=== PATIENT | male | born 1940 | race Caucasian/White ===

== ENCOUNTER 2016-11-08 21:20 | Observation (INO) | payer MEDICARE ==
[~2016-11-08] VITALS: Ht 177.8 cm; Wt 101.0 kg
[2016-11-08] VITALS (7 sets, daily range): BP systolic 79–140; BP diastolic 45–70; PULSE 58–88; RESP 18–20; TEMP 99–101.1; O2SAT 95–97
[~2016-11-08 21:20] MED LIST: ANDR1GEL; ASPI81TA82 PO; CETI10 PO; FELO5TAB PO; JALYCAP; LISI20 PO; LORTA5; PROPIONATE; PROT40TA PO; SIMV80TA PO; VITA-13; [UNRECOGNIZED DRUG - CODE]; [UNRECOGNIZED DRUG - OTHER]
[2016-11-08] MEDS ORDERED: SODIUM CHLOR 0.9% 1000 ML INJ 1,000 ML IV ONE (21:32)
[2016-11-08] MEDS ORDERED: ONDANSETRON HCL 4 MG/2 ML VIAL IVP ONE (21:45)
[2016-11-08 21:53] LABS: BASOPHIL % 0.5 % (0.0-2.0); EOSINOPHIL % 0.8 % (0.0-4.0); HEMATOCRIT 38.5 % (39.0-51.0); LYMPH % 14.7 % (9.0-44.0); LYMPHOCYTE # 0.6 TH/MM3 (1.0-4.8); MEAN CELL VOLUME 87.3 FL (80.0-100.0); MEAN CORPUSCULAR HEMOGLOBIN 29.1 PG (27.0-34.0); MEAN CORPUSCULAR HGB CONC 33.3 % (32.0-36.0); MONO % 6.9 % (0.0-8.0); NEUT % 77.1 % (16.0-70.0); PLATELET COUNT 123 TH/MM3 (150-450); RED BLOOD COUNT 4.42 MIL/MM3 (4.50-5.90); RED CELL DISTRIBUTION WIDTH 13.1 % (11.6-17.2); WHITE BLOOD COUNT 3.9 TH/MM3 (4.0-11.0)
[2016-11-08 21:55] LABS: HEMO FLAGS DIFF FINAL
[2016-11-08] MEDS: SODIUM CHLORIDE 0.9% FLUSH 5 ML FLUSH IVF PRN ×2 (22:00→23:04)
[2016-11-08 22:04] LABS: CHLORIDE 108 MEQ/L (98-107); SODIUM (NA) 141 MEQ/L (136-145)
[2016-11-08 22:07] LABS: ANION GAP 9 MEQ/L (5-15); BICARBONATE 23.7 MEQ/L (21.0-32.0); BLOOD UREA NITROGEN 19 MG/DL (7-18); MAGNESIUM 1.5 MG/DL (1.5-2.5)
--- NOTE | 2016-11-08 22:09 | RADHPO ---
EXAM DATE/TIME: 11/08/2016 21:44 [facility] COMPARISON: No previous studies available for comparison. INDICATIONS : Syncopal episode with fall. Frontal head trauma. RADIATION DOSE: 59.39 CTDIvol (mGy) MEDICAL HISTORY : Hypertension. SURGICAL HISTORY : None. ENCOUNTER: Initial ACUITY: 1 day PAIN SCALE: 5/10 LOCATION: frontal TECHNIQUE: Multiple contiguous axial images were obtained of the head. Using automated exposure control and adj ustment of the mA and/or kV according to patient size, radiation dose was kept as low as reasonably a chievable to obtain optimal diagnostic quality images. FINDINGS: CEREBRUM: The ventricles are normal for age. No evidence of midline shift, mass lesion, hemorrhage or acute in farction. No extra-axial fluid collections are seen. POSTERIOR FOSSA: The cerebellum and brainstem are intact. The 4th ventricle is midline. The cerebellopontine angle i s unremarkable. EXTRACRANIAL: The visualized portion of the orbits is intact. SKULL: The calvaria is intact. No evidence of skull fracture. CONCLUSION: Negative noncontrast head CT. Austyn Piña MD on November 08, 2016 at 22:07 Board Certified Radiologist. This report was verified electronically.
[2016-11-08 22:10] LABS: GLOMERULAR FILTRATION RATE 65 ML/MIN (>89)
[2016-11-08 22:12] LABS: POTASSIUM 4.6 MEQ/L (3.5-5.1)
[2016-11-08 22:20] LABS: CREATINE KINASE 72 U/L (39-308)
[2016-11-08] MEDS ORDERED: ATOR40TA16 PO (22:34)
[2016-11-08] MEDS ORDERED: VITA100021 SL (22:35)
[2016-11-08] MEDS ORDERED: ASPI81TA81 PO (22:35)
[2016-11-08] MEDS ORDERED: TAMS0.4C4 PO (22:35)
[2016-11-08] MEDS ORDERED: AMLO5TAB2 PO (22:35)
[2016-11-08] MEDS ORDERED: FISH1000 PO (22:35)
[2016-11-08] MEDS ORDERED: PANT40TA3 PO (22:35)
[2016-11-08] MEDS ORDERED: VITA20003 PO (22:35)
[2016-11-08] MEDS ORDERED: PROS5TAB PO (22:35)
[2016-11-08] MEDS ORDERED: LISI40TA PO (22:35)
[2016-11-08] MEDS ORDERED: METOCLOPRAMIDE INJ 10 MG in SODIUM CHLORIDE 0.9% INJ 50 ML IV ONE (22:45)
--- NOTE | 2016-11-08 22:49 | PD ---
HPI Chief Complaint: Syncope/Near-Syncope Time Seen by Provider: 21:41 Travel History International Travel<30 days: No Contact w/Intl Traveler<30days: No Traveled to known affect area: No History of Present Illness HPI 75yo M presents to the ED with c/o episode of syncope today. Pt has been feeling lightheaded and dizzy when standing up from sitting position for a few days. Today he has been having nonbloody diarrhea and was leaning on kitchen table when his heard him fall to the fall. Pt was out for 5 -10 sec as per . +Nausea. Pt denies any headache, visual changes, vomiting, abdominal pain, focal weakness or numbness. Pt was positive orthostatic as per [facility]. He was pale but not diaphoretic. PFSH Past Medical History Heart Rhythm Problems: No Cancer: No Cardiovascular Problems: Yes High Cholesterol: Yes Chest Pain: Yes Congestive Heart Failure: No Diminished Hearing: Yes Endocrine: No GERD: Yes Genitourinary: No Hiatal Hernia: No Hypertension: Yes Immune Disorder: No Musculoskeletal: No Neurologic: No Psychiatric: No Reproductive: No Respiratory: No Ulcer: No Past Surgical History Abdominal Surgery: No Cardiac Surgery: No Ear Surgery: No Endocrine Surgery: No Eye Surgery: No Genitourinary Surgery: No Gynecologic Surgery: No Oral Surgery: Yes (ALL TEETH REMOVED) Pacemaker: No Thoracic Surgery: No Social History Alcohol Use: Yes (OCC) Tobacco Use: No Substance Use: No Allergies-Medications (Allergen,Severity, Reaction): Coded Allergies: No Known Allergies (Unverified , 03/21/12) Reported Meds & Prescriptions Reported Meds & Active Scripts Active Reported Vitamin D (Cholecalciferol) 2,000 Unit Tab 2,000 Mg PO DAILY Vitamin B-12 (Cyanocobalamin) 1,000 Mcg Subl 1,000 Mcg SL DAILY Fish Oil (Katy-3 Fatty Acids) 1,000 Mg Cap 1,000 Mg PO DAILY Aspir-81 (Aspirin) 81 Mg Tabdr 81 Mg PO DAILY Pantoprazole (Pantoprazole Sodium) 40 Mg Tab 40 Mg PO DAILY Amlodipine (Amlodipine Besylate) 5 Mg Tab 5 Mg PO DAILY Lisinopril 40 Mg Tab 40 Mg PO DAILY Proscar (Finasteride) 5 Mg Tab 5 Mg PO DAILY Do not crush. Tamsulosin (Tamsulosin HCl) 0.4 Mg Cap 0.4 Mg PO HS Atorvastatin (Atorvastatin Calcium) 40 Mg Tab 40 Mg PO HS Review of Systems Except as stated in HPI: all other systems reviewed are Neg Physical Exam Narrative GENERAL: 75yo M not in distress. SKIN: Warm and dry. HEAD: Atraumatic. Normocephalic. EYES: Pupils equal and round. EOMI. No scleral icterus. No injection or drainage. ENT: No nasal bleeding or discharge. Mucous membranes pink and moist. NECK: Trachea midline. No JVD. CARDIOVASCULAR: Regular rate and rhythm. No murmur appreciated. RESPIRATORY: No accessory muscle use. Clear to auscultation. Breath sounds equal bilaterally. GASTROINTESTINAL: Abdomen soft, non-tender, nondistended. MUSCULOSKELETAL: No obvious deformities. No clubbing. No cyanosis. No edema. NEUROLOGICAL: Awake and alert. No obvious cranial nerve deficits. Motor grossly within normal limits. Normal speech. PSYCHIATRIC: Appropriate mood and affect; insight and judgment normal. Data Data Last Documented VS Vital Signs Date Time Temp Pulse Resp B/P Pulse Ox O2 Delivery O2 Flow Rate FiO2 11/08/16 23:30 101.1 84 20 103/56 97 11/08/16 21:42 Room Air Orders Electrocardiogram (11/08/16 21:32) Basic Metabolic Panel (Bmp) (11/08/16 21:32) Complete Blood Count With Diff (11/08/16 21:32) Magnesium (Mg) (11/08/16 21:32) Ckmb (Isoenzyme) Profile (11/08/16 21:32) Troponin I (11/08/16 21:32) Act Partial Throm Time (Ptt) (11/08/16 21:32) Prothrombin Time / Inr (Pt) (11/08/16 21:32) Urinalysis - C+S If Indicated (11/08/16 21:32) Ct Brain W/O Iv Contrast(Rout) (11/08/16 21:32) Ecg Monitoring (11/08/16 21:32) Iv Access Insert/Monitor (11/08/16 21:32) Oximetry (11/08/16 21:32) Ondansetron Inj (Zofran Inj) (11/08/16 21:45) Sodium Chloride 0.9% Flush (Ns Flush) (11/08/16 21:45) Sodium Chlor 0.9% 1000 Ml Inj (Ns 1000 M (11/08/16 21:32) Orthostatic Vital Signs (11/08/16 21:34) Metoclopramide Inj (Reglan Inj) (11/08/16 22:45) Acetaminophen (Tylenol) (11/08/16 23:15) Influenzae A/B Antigen (11/08/16 23:20) Sodium Chlor 0.9% 1000 Ml Inj (Ns 1000 M (11/09/16 00:00) Chest, Single Ap (11/08/16 ) Sodium Chlor 0.9% 1000 Ml Inj (Ns 1000 M (11/09/16 00:00) Admit Order (Ed Use Only) (11/08/16 23:55) Labs Laboratory Tests Test 11/08/16 11/08/16 21:45 23:30 White Blood Count 3.9 TH/MM3 Red Blood Count 4.42 MIL/MM3 Hemoglobin 12.8 GM/DL Hematocrit 38.5 % Mean Corpuscular Volume 87.3 FL Mean Corpuscular Hemoglobin 29.1 PG Mean Corpuscular Hemoglobin 33.3 % Concent Red Cell Distribution Width 13.1 % Platelet Count 123 TH/MM3 Mean Platelet Volume 8.4 FL Neutrophils (%) (Auto) 77.1 % Lymphocytes (%) (Auto) 14.7 % Monocytes (%) (Auto) 6.9 % Eosinophils (%) (Auto) 0.8 % Basophils (%) (Auto) 0.5 % Neutrophils # (Auto) 3.0 TH/MM3 Lymphocytes # (Auto) 0.6 TH/MM3 Monocytes # (Auto) 0.3 TH/MM3 Eosinophils # (Auto) 0.0 TH/MM3 Basophils # (Auto) 0.0 TH/MM3 CBC Comment DIFF FINAL Differential Comment Prothrombin Time 11.0 SEC Prothromb Time International 1.0 RATIO Ratio Activated Partial 23.7 SEC Thromboplast Time Sodium Level 141 MEQ/L Potassium Level 4.6 MEQ/L Chloride Level 108 MEQ/L Carbon Dioxide Level 23.7 MEQ/L Anion Gap 9 MEQ/L Blood Urea Nitrogen 19 MG/DL Creatinine 1.10 MG/DL Estimat Glomerular Filtration 65 ML/MIN Rate Random Glucose 109 MG/DL Calcium Level 8.1 MG/DL Magnesium Level 1.5 MG/DL Total Creatine Kinase 72 U/L Troponin I LESS THAN 0.02 NG/ML Urine Collection Type VOIDED Urine Color YELLOW Urine Turbidity CLEAR Urine pH 6.0 Urine Specific [place] 1.020 Urine Protein NEG mg/dL Urine Glucose (UA) NEG mg/dL Urine Ketones NEG mg/dL Urine Occult Blood NEG Urine Nitrite NEG Urine Bilirubin NEG Urine Leukocyte Esterase NEG Urine WBC 0-2 /hpf Urine Squamous Epithelial 0-2 /hpf Cells Urine Mucus RARE /lpf Microscopic Urinalysis Comment CULT NOT INDICATED MDM Medical Decision Making Medical Screen Exam Complete: Yes Emergency Medical Condition: Yes Interpretation(s) EKG: NSR 75bpm. LAD. LAFB. No ST segment elevation or depression. Differential Diagnosis Vasovagal syncope vs. dehydration vs. electrolyte abnormality vs. arrhythmia Narrative Course 75yo M with episode of syncope, impression is vasovagal. Pt's blood pressure lying down is 140/70 but when he stands up, drops to 79/45 here. Pt denies any black stool. Labs reviewed, WBC 3.9. H/H 12.8/38.5. Thrombocytopenia at 123. Troponin negative. CT brain negative. Pt given NS IVF with improvement of symptoms. While pt was here, pt developed fever of 101F. Pt given acetaminophen. Pt states he does have some cough for a few days. Influenza, CXR, UA and cdiff stool culture ordered. UA negative. CXR showed no infiltrate. Influenza negative. C diff pending. Pt empirically given vancomycin and zosyn. Pt states he has history of arrhythmia but does not know his nursing administrator's name and his nursing administrator states that he does not have to follow up with him for [address] Kaminski and pt accepted for syncope. Diagnosis Primary Impression: Syncope Qualified Code: R55 - Syncope, unspecified syncope type Admitting Information Admitting Physician Requests: Sherice Vasquez DO Nov 08, 2016 22:49
[2016-11-08 22:50] LABS: APTT (PATIENT) 23.7 SEC (24.3-30.1)
[2016-11-08] MEDS ORDERED: ACETAMINOPHEN 325 MG TAB PO ONE (23:15)
[2016-11-09] VITALS (14 sets, daily range): BP systolic 106–138; BP diastolic 53–80; PULSE 57–82; RESP 20–21; TEMP 98–100.1; O2SAT 93–98
[2016-11-09] MEDS ORDERED: SODIUM CHLOR 0.9% 1000 ML INJ 1,000 ML IV ONE ×2
[2016-11-09 00:08] LABS: BLOOD, URINE NEG (NEG); GLUCOSE,URINE NEG (NEG); KETONE, URINE NEG (NEG); NITRITE,URINE NEG (NEG)
[2016-11-09 00:14] LABS: METHOD OF COLLECTION VOIDED; MUCUS URINE RARE /lpf (OCC); URINE COLOR YELLOW (YELLW/STRAW)
[2016-11-09 00:15] LABS: COMMENT (UR) CULT NOT INDICATED; CULTURE IF INDICATED CULT NOT INDICATED; SQUAMOUS EPITHELIAL CELL URINE 0-2 /hpf (0-5); WBC, URINE 0-2 /hpf (0-5)
[2016-11-09] MEDS ORDERED: VANCOMYCIN INJ 1,000 MG in SODIUM CHLOR 0.9% 250 ML INJ 250 ML IV ONE (00:15)
[2016-11-09] MEDS ORDERED: PIPERACIL-TAZO 3.375 GM PREMIX 50 ML IV ONE (00:15)
--- NOTE | 2016-11-09 00:19 | RADHPO ---
EXAM DATE/TIME: 11/08/2016 23:58 [facility] COMPARISON: No previous studies available for comparison. INDICATIONS : Short of breath with a cough. MEDICAL HISTORY : Syncope. SURGICAL HISTORY : None. ENCOUNTER: Initial ACUITY: 1 day PAIN SCORE: 3/10 LOCATION: Right chest lower region. FINDINGS: A single view of the chest demonstrates the lungs to be symmetrically aerated without evidence of mas s, infiltrate or effusion. The cardiomediastinal contours are unremarkable. The heart is upper limi ts normal size for an AP film. Osseous structures are intact. CONCLUSION: No infiltrate seen. Umer Rodriguez MD on November 09, 2016 at 0:16 Board Certified Radiologist. This report was verified electronically.
[2016-11-09] MEDS: SODIUM CHLOR 0.9% 1000 ML INJ 1,000 ML IV SCH ×2 (04:32→15:58)
[2016-11-09] MEDS: cefTRIAXone INJ 1,000 MG in SODIUM CHLORIDE 0.9% INJ 100 ML IV SCH (04:32)
[2016-11-09] MEDS ORDERED: NON-FORMULARY DRUG (Omega-3 Fatty Acids (Fish Oil) 1,000 MG) PO SCH (09:00)
[2016-11-09] MEDS: PANTOPRAZOLE SOD 40 MG DELAYED RELEASE TAB PO SCH (09:01)
[2016-11-09] MEDS: ASPIRIN EC 81 MG TABEC PO SCH (09:01)
[2016-11-09] MEDS: FINASTERIDE 5 MG TAB PO SCH (09:01)
--- NOTE | 2016-11-09 11:18 | RADHPO ---
EXAM DATE/TIME: 11/09/2016 09:33 [facility] COMPARISON: No previous studies available for comparison. INDICATIONS : Syncope. MEDICAL HISTORY : Hypercholesterolemia. Gastroesophageal reflux disease. Hypertension. BPH. SURGICAL HISTORY : All teeth removed. ENCOUNTER: Initial ACUITY: 1 day PAIN SCORE: 09/09 LOCATION: Bilateral neck PEAK SYSTOLIC VELOCITIES (cm/sec): ICA/CCA RATIO: Right: 0.6 Left: 0.8 ICA: Right: 50 Left: 61 CCA: Right: 81 Left: 81 ECA: Right: 116 Left: 73 VERTEBRAL: Right: 44 antegrade Left: 60 antegrade Elevated flow velocities and ICA/CCA ratios have been found to correlate with increased degrees of vessel stenosis, calculated as percentage of diameter relative to a normal segment of distal ICA/CCA FINDINGS: RIGHT CAROTID: There is minimal plaque at the right carotid bulb region. No significant stenosis is visualized. The waveforms are within normal limits. LEFT CAROTID: No significant stenosis is visualized. The waveforms are within normal limits. VERTEBRAL ARTERIES: Antegrade flow is seen in both vertebral arteries. MISCELLANEOUS: None. CONCLUSION: Minimal plaque at the right carotid bulb region. A significant stenosis is not seen. Austyn Art MD on November 09, 2016 at 11:15 Board Certified Radiologist. This report was verified electronically.
--- NOTE | 2016-11-09 15:39 | EC ---
Study Study Date:11/09/2016 STUDY CONCLUSIONS SUMMARY - Left ventricle: The cavity size was normal. Wall thickness was normal. Systolic function was normal. The estimated ejection fraction was in the range of 55% to 60%. Wall motion was normal; there were no regional wall motion abnormalities. Doppler parameters are consistent with abnormal left ventricular relaxation (grade 1 diastolic dysfunction). - Aortic valve: Mild regurgitation. - Atrial septum: There was increased thickness of the septum, consistent with lipomatous hypertrophy. - Pulmonary arteries: PA peak pressure: 34mm Hg (S). If LV function is below 40, please consider prescribing an ACEI or ARB or document rationale for non-use. PROCEDURE DATA STUDY STATUS: Elective. Procedure: Transthoracic echocardiography. Image quality was good. Scanning was performed from the parasternal, apical, and subcostal acoustic windows. Study completion: The patient tolerated the procedure well. Transthoracic echocardiography. M-mode, complete 2D, complete spectral Doppler, and color Doppler. Patient status: Inpatient. CARDIAC ANATOMY LEFT VENTRICLE: The cavity size was normal. Wall thickness was normal. Systolic function was normal. The estimated ejection fraction was in the range of 55% to 60%. Wall motion was normal; there were no regional wall motion abnormalities. Doppler parameters are consistent with abnormal left ventricular relaxation (grade 1 diastolic dysfunction). AORTIC VALVE: Trileaflet; normal thickness leaflets. Doppler: Transvalvular velocity was within the normal range. There was no stenosis. Mild regurgitation. Peak gradient: 17mm Hg (S). AORTA: Aortic root: The aortic root was normal in size. MITRAL VALVE: Structurally normal valve. Doppler: Transvalvular velocity was within the normal range. There was no evidence for stenosis. No regurgitation. Peak gradient: 2mm Hg (D). LEFT ATRIUM: The atrium was normal in size. ATRIAL SEPTUM: There was increased thickness of the septum, consistent with lipomatous hypertrophy. RIGHT VENTRICLE: The cavity size was normal. Wall thickness was normal. PULMONIC VALVE: Doppler: Transvalvular velocity was within the normal range. There was no evidence for stenosis. No regurgitation. TRICUSPID VALVE: Structurally normal valve. Doppler: Transvalvular velocity was within the normal range. No regurgitation. PULMONARY ARTERY: The main pulmonary artery was normal-sized. Systolic pressure was within the normal range. RIGHT ATRIUM: The atrium was normal in size. PERICARDIUM: There was no pericardial effusion. SYSTEMIC VEINS: Inferior vena cava: The vessel was normal in size. BASIC MEASUREMENTS ADULT Normal Left ventricle LV internal dimension, ED, chordal level, 49.8 mm 43-52 PLAX LV internal dimension, ES, chordal level, *38.3 mm 23-38 PLAX Fractional shortening, chordal level, PLAX *23 % >29 LV posterior wall thickness, ED 7.32 mm IVS/LVPW ratio, ED *1.72 <1.3 Ventricular septum Septal thickness, ED 12.6 mm Aortic valve Leaflet separation 23 mm 15-26 Left atrium Anterior-posterior dimension 34 mm Right ventricle RV internal dimension, ED, PLAX 22.7 mm 19-38 BASIC MEASUREMENTS ADULT Normal Aortic valve Leaflet separation 23 mm 15-26 Aorta Root diameter, ED *39 mm 20-37 DOPPLER MEASUREMENTS ADULT Normal Main pulmonary artery Pressure, S *34 mm Hg =30 Aortic valve Peak velocity, S 209 cm/s Peak gradient, S 17 mm Hg Mitral valve Peak E-wave velocity 76.5 cm/s Peak A-wave velocity 93.2 cm/s Peak gradient, D 2 mm Hg Peak E/A ratio 0.8 Tricuspid valve Regurgitant peak velocity 270 cm/s Peak RV-RA gradient, S 29 mm Hg Maximal regurgitant velocity 270 cm/s Systemic veins Estimated CVP 5 mm Hg Right ventricle RV pressure, S *34 mm Hg <30 LEGEND: Mean values are shown as u=mean value. Asterisk (*) wheeler values outside specified normal range. Prepared and signed by Wilberto Mohr [id number]
[2016-11-09] MEDS: TAMSULOSIN HCL 0.4 MG CAP PO SCH (21:16)
[2016-11-09] MEDS: ATORVASTATIN 40 MG TAB PO SCH (21:16)
[2016-11-10] VITALS (8 sets, daily range): BP systolic 100–126; BP diastolic 56–89; PULSE 59–88; RESP 18–20; TEMP 97.8–98.2; O2SAT 94–98
[2016-11-10] MEDS: SODIUM CHLOR 0.9% 1000 ML INJ 1,000 ML IV SCH ×3 (03:01→19:45)
[2016-11-10] MEDS: cefTRIAXone INJ 1,000 MG in SODIUM CHLORIDE 0.9% INJ 100 ML IV SCH (03:02)
[2016-11-10 05:11] LABS: HEMATOCRIT 35.4 % (39.0-51.0); MEAN CELL VOLUME 86.3 FL (80.0-100.0); MEAN CORPUSCULAR HEMOGLOBIN 29.8 PG (27.0-34.0); MEAN CORPUSCULAR HGB CONC 34.5 % (32.0-36.0); PLATELET COUNT 127 TH/MM3 (150-450); RED BLOOD COUNT 4.11 MIL/MM3 (4.50-5.90); RED CELL DISTRIBUTION WIDTH 14.4 % (11.6-17.2); REVIEW FLAG FINAL; WHITE BLOOD COUNT 4.4 TH/MM3 (4.0-11.0)
--- NOTE | 2016-11-10 07:31 | EKG ---
Date Performed: 11/08/2016 Time Performed: 21:39:46 PTAGE: 75 years EKG: Sinus rhythm . Possible left anterior fascicular block IV conduction defect Abnormal ECG Compared to PREVIOUS TRACING , axis is more leftward, otherwise no change. PREVIOUS TRACIN2011 19.31 DOCTOR: Jamal Mcgregor Interpretating Date/Time 11/10/2016 07:30:51
[2016-11-10] MEDS: FINASTERIDE 5 MG TAB PO SCH (08:23)
[2016-11-10] MEDS: PANTOPRAZOLE SOD 40 MG DELAYED RELEASE TAB PO SCH (08:23)
[2016-11-10] MEDS: ASPIRIN EC 81 MG TABEC PO SCH (08:23)
[2016-11-10] MEDS: SODIUM CHLORIDE 0.9% FLUSH 5 ML FLUSH IVF PRN (08:23)
--- NOTE | 2016-11-10 10:12 | MH ---
cc: MARCELA KAMINSKI MD DATE OF ADMISSION: 11/08/2016 DATE OF : 1940 CHIEF COMPLAINT Syncope. HISTORY OF PRESENT ILLNESS This is a pleasant 75-year-old white male who has been in his usual routine up until Thursday. He states that he began feeling some generalized weakness with some body aches but continued to do his normal routine. He denies any chest pain, shortness of breath, headache. The patient did have nonbloody diarrhea the day of admission to [facility], but no complaints now of any further diarrhea. The next day on Thursday the patient was working round house and continued to have a body ache sensation the patient does note a history of dizziness but denies any syncopal episodes. The patient did start to note some dizziness with standing at his kitchen counter and does not remember anything after that. His was in the next room and states that the patient was out for 5-10 seconds but then regained consciousness. He was nauseated at that point in time. The patient was brought to the [facility] facility and evaluated. He was transferred here to [place] for continued evaluation. According to the [facility] notes the patient was orthostatic. He was pale but not diaphoretic. Currently the patient's skin is pink, warm and dry. The patient did complain of some cough for a few days but none now. PAST MEDICAL HISTORY According to the patient and the record: 1. Hyperlipidemia. 2. History of chest pain. 3. Hard of hearing. 4. GERD. 5. Hypertension. 6. Dizziness. PAST SURGICAL HISTORY Oral surgery. ALLERGIES No known allergies. MEDICATIONS Medications reported: 1. Vitamin-D. 2. Vitamin-B12. 3. Fish oil. 4. Aspirin. 5. Pantoprazole. 6. Amlodipine. 7. Lisinopril. 8. Proscar. 9. Tamsulosin. 10.Atorvastatin. SOCIAL HISTORY The patient is . Currently lives at home with his . Rare social alcohol. No tobacco. No illicit drugs. REVIEW OF SYSTEMS A 12-point review was obtained. Positives noted were syncope, nausea which resolved, body aches, fever 24 hours before admission, and diarrhea. Other systems are negative or unremarkable. The patient did have nonbloody diarrhea the day of admission to [facility], but no complaints now of any further diarrhea. PHYSICAL EXAMINATION VITAL SIGNS: Temperature 98.1, pulse 64, respirations 20, blood pressure 126/63, has been as low as 116/56. O2 sat 94 on room air. GENERAL: A well-nourished, mildly obese white male who looks to be his stated age, resting on a stretcher. SKIN: [place], warm and dry. HEENT: Atraumatic, normocephalic. PERRLA at 2 mm. Mucous membranes are moist. Tongue is midline. NECK: Supple, thick. CARDIOVASCULAR: S1, S2. No murmurs, rubs or gallops audible. Distant heart sounds. No edema. Pulses are intact. PULMONARY: Essentially clear anteriorly and posteriorly with no wheezes, rales or rhonchi. ABDOMEN: Round, soft, nontender, nondistended. Active bowel sounds in all four quadrants. EXTREMITIES: He moves his extremities with purpose. He can overcome resistance. NEUROLOGIC: He is alert, oriented, a fairly historian. PSYCHIATRIC: Appropriate mood and affect. : Active voiding. Amelia clear urine in the urinal. IMAGING DATA Carotid ultrasound is ordered and pending. Head CT was negative. Chest x-ray: No infiltrates seen. ASSESSMENT 1. Syncope with loss of consciousness 5-10 seconds, rule out TIA. 2. Fever of unknown origin. 3. Generalized weakness with body aches. 4. Acute kidney injury with dehydration, mild. 5. Anemia. 6. History of dizziness. 7. Lactic acid sepsis, unknown origin. 8. Possible gastroenteritis. PLAN 1. Plan is to monitor his vital signs q.4h. and as warranted. 2. Will reconcile medications as needed. 3. Monitor the patient on ECG with active access. 4. O2 p.r.n. 5. Check orthostatic vital signs. These were initially noted to be positive in the notes. Will recheck those today. 6. The patient received Zosyn and vancomycin in the ER. He is currently on Rocephin IV. 7. PUD with Protonix. 8. DVT prophylaxis with aspirin. 9. Will continue his Lipitor for hyperlipidemia. 10.The patient will have carotid artery ultrasound and 2-D echo. Rule out any initial cardiac problems to be addressed. According to the record the patient has seen cardiology in the past, does not remember the name, but has not seen him in three years. 11.He will be placed on a heart-healthy diet. 12.Will check C. difficile toxin if the patient has any more diarrhea. 13.PRN medications for pain, nausea and bowel regimen. This case will be discussed with Dr. Kaminski and we will follow. Dictated by: BERONICA Fry MD KOLBY Chun/ABIEL /7:44 AM /9:12 AM pt is seen & examined d/w PT d/w Christine see Notes per christine see Orders will f/u Marcela Kaminski MD Nov 10, 2016 15:40 MTDD
--- NOTE | 2016-11-10 10:36 | MH ---
DATE OF ADMISSION: 11/08/2016 ADMITTING PHYSICIAN JONATHON VEE MD ATTENDING PHYSICIAN: Dr. Vicki Kaminski CHIEF COMPLAINT: Syncope/near syncope. HISTORY OF PRESENT ILLNESS: The patient is a very pleasant 75 year-old white male who presented to the emergency room with complaints of episodes of syncope today. Per patient he has been feeling lightheaded and dizzy when standing up from sitting position for a few days. Today he has been having dizziness and was leaning on the kitchen table when his heard him fall onto the ground. Per he was out for about 5 to 10 seconds. The patient does complain of nausea, denies any headache, visual changes, vomiting, abdominal pain, chest pain, shortness of breath, palpitations, focal weakness or numbness. The patient with positive orthostatic per [facility]. He was pale but not diaphoretic. While the patient was in the ER he developed a fever of 101 degrees. The patient was given tylenol, vancomycin and zosyn. Per patient he has been having some cough for a few days. PAST MEDICAL HISTORY: 1. Hypertension. 2. Hyperlipidemia. 3. BPH. 4. Gastroesophageal reflux disease. PAST SURGICAL HISTORY: Teeth removed. Appendectomy. SOCIAL HISTORY: . Never a smoker. He drinks one alcoholic beverage per month. No illicit drug use. FAMILY HISTORY: Significant for colon cancer in mother and father. Father also had coronary artery disease, was a smoker. CURRENT MEDICATIONS: 1. Vitamin D. 2. Vitamin B12. 3. Fish oil. 4. Aspirin. 5. Pantoprazole. 6. Amlodipine 7. Lisinopril 8. Proscar 9. Tamsulosin. 10. Atorvastatin REVIEW OF SYSTEMS: GENERAL: He does complain of generalized weakness. HEENT: Denies any headache, ears or eye pain. Denies any nasal discharge. Denies any throat pain. CARDIOVASCULAR: Denies any chest pain or palpitations. RESPIRATORY: Denies any cough or shortness of breath. GASTROINTESTINAL: Denies any abdominal pain, does complain of nausea, no vomiting, loose stools positive. MUSCULOSKELETAL: No arthralgia. NEUROLOGICAL: No focal deficits, seizures or history of CVA. PSYCHIATRIC: No depression or anxiety. PHYSICAL EXAMINATION: GENERAL: The patient is a 75 year-old white male who is lying in bed in no acute distress. SKIN: Warm and dry. HEAD: Atraumatic, normocephalic. EYES: Pupils are equal, round and reactive to light. Extraocular movements are intact. No scleral icterus. No injection or drainage. ENT: No nasal bleeding or discharge. Mucous membranes are pink and moist. NECK: Trachea midline. No JVD. Carotid bruit on the right side. CARDIOVASCULAR: Regular rate and rhythm. No murmur, S1-S2 heard. RESPIRATORY: No accessory muscle use. Clear to auscultation. Breath sounds equal bilaterally. GASTROINTESTINAL: The abdomen is soft, nontender and nondistended. Bowel sounds heard in all four quadrants. MUSCULOSKELETAL: No obvious deformities. No clubbing. No cyanosis. No edema. NEUROLOGICAL: Alert and awake. No focal deficits. Motor grossly within normal limits. Normal speech. PSYCHIATRIC: Appropriate mood and affect, insight and judgment normal. VITAL SIGNS: Blood pressure is 103/56, temperature is 101.1, pulse 84, respiratory rate 20. Pulse oximetry is 98% on room air. LABORATORY DATA: WBC 3.9, hemoglobin 12.8, hematocrit 38.5, platelet count 123,000. Sodium 141, potassium 4.6, chloride 108, BUN 19, creatinine 1.10, random glucose is 109, UA is clear. Chest x-ray, no infiltrates. CT brain without contrast negative. Troponin, first set negative. DIAGNOSTIC IMPRESSION: 1. Syncope. 2. Orthostatic hypotension 3. Hypertension. 4. Hyperlipidemia. 5. Gastroesophageal reflux disease. 6. BPH. PLAN: 1. Will admit the patient under observation. 2. Will start the patient on IV fluids. 3. Will hold the blood pressure medication as his orthostatics were positive per [facility]. 4. Will request blood cultures as the patient spiked a fever. 5. Will start empirically rocephin. Patient already received Zosyn in the ER. 6. Will continue the home medications as appropriate. 7. CT head is negative. 8. Will request a 2-D echocardiogram and ultrasound of the carotids. 9. Will do continuous telemetry monitoring. 10. PUD prophylaxis with PPI. 11. Will monitor the patient closely during the hospital stay. Further management depends upon the hospital course. MD JOSE JUAN Grubbs
[2016-11-10 11:16] LABS: BLOOD, URINE NEG (NEG); GLUCOSE,URINE NEG (NEG); KETONE, URINE NEG (NEG); MUCUS URINE FEW /lpf (OCC); NITRITE,URINE NEG (NEG); URINE COLOR LIGHT-YELLOW (YELLW/STRAW)
[2016-11-10 11:36] LABS: COMMENT (UR) CATH-CULT NOT IND; CULTURE IF INDICATED CATH CULTURE NOT IND
--- NOTE | 2016-11-10 15:40 | HHI.PR ---
Objective Objective Results - Vital Signs Date Time Temp Pulse Resp B/P Pulse Ox O2 Delivery O2 Flow Rate FiO2 11/10/16 12:03 97.8 64 18 107/57 95 11/10/16 09:28 120/62 94 121/66 100/56 11/10/16 08:03 61 11/10/16 07:22 98.1 64 20 126/63 94 11/10/16 04:25 98.0 88 18 121/68 98 11/09/16 23:59 98.0 57 20 131/80 97 11/09/16 20:00 63 11/09/16 19:16 98.8 63 21 116/56 98 11/09/16 17:09 99.7 65 20 138/68 93 11/09/16 15:44 63 20 106/53 94 I/O 11/09/16 11/09/16 11/09/16 11/10/16 11/10/16 11/10/16 07:00 15:00 23:00 07:00 15:00 23:00 Intake Total 2700 ml 175 ml 764 ml 600 ml Output Total 1800 ml 900 ml Balance 900 ml 175 ml -136 ml 600 ml Intake Oral 100 ml 175 ml 300 ml IV Total 2600 ml 764 ml 300 ml Output Urine Total 1800 ml 900 ml # Voids 1 1 Result Diagram: 11/10/16 0410 11/08/16 2145 Other Results Laboratory Tests Test 11/10/16 11/10/16 04:10 10:51 White Blood Count 4.4 Red Blood Count 4.11 Hemoglobin 12.2 Hematocrit 35.4 Mean Corpuscular Volume 86.3 Mean Corpuscular Hemoglobin 29.8 Mean Corpuscular Hemoglobin 34.5 Concent Red Cell Distribution Width 14.4 Platelet Count 127 Mean Platelet Volume 8.7 Urine Color LIGHT-YELLOW Urine Turbidity CLEAR Urine pH 5.0 Urine Specific [place] 1.005 Urine Protein NEG Urine Glucose (UA) NEG Urine Ketones NEG Urine Occult Blood NEG Urine Nitrite NEG Urine Bilirubin NEG Urine Urobilinogen LESS THAN 2.0 Urine Leukocyte Esterase NEG Urine RBC LESS THAN 1 Urine WBC LESS THAN 1 Urine Mucus FEW Microscopic Urinalysis Comment CATH-CULT NOT IND Date/Time Procedure Status Source Growth 11/09/16 00:30 Aerobic Blood Culture - Preliminary Resulted Blood Peripheral NO GROWTH IN 1 DAY 11/09/16 00:30 Anaerobic Blood Culture - Preliminary Resulted Blood Peripheral NO GROWTH IN 1 DAY 11/08/16 23:50 Influenza Types A,B Antigen (ZAY) - Final Complete Nasal Aspirate NEGATIVE FOR FLU A AND B ANTIGEN.... A/P Assessment and Plan pt is seen & examined d/w PT d/w Christine see Notes per christine see Orders will f/u Jewel Kaminski MD Nov 10, 2016 15:40
[2016-11-10] MEDS: TAMSULOSIN HCL 0.4 MG CAP PO SCH (20:58)
[2016-11-10] MEDS: ATORVASTATIN 40 MG TAB PO SCH (20:59)
[2016-11-11 00:06] VITALS: BP 107/58; PULSE 55; RESP 20; TEMP 97.6; O2SAT 95
[2016-11-11] MEDS: cefTRIAXone INJ 1,000 MG in SODIUM CHLORIDE 0.9% INJ 100 ML IV SCH (04:09)
[2016-11-11 04:21] LABS: HEMATOCRIT 34.9 % (39.0-51.0); MEAN CELL VOLUME 85.9 FL (80.0-100.0); MEAN CORPUSCULAR HEMOGLOBIN 29.3 PG (27.0-34.0); MEAN CORPUSCULAR HGB CONC 34.1 % (32.0-36.0); PLATELET COUNT 117 TH/MM3 (150-450); RED BLOOD COUNT 4.07 MIL/MM3 (4.50-5.90); RED CELL DISTRIBUTION WIDTH 14.1 % (11.6-17.2); REVIEW FLAG FINAL; WHITE BLOOD COUNT 4.9 TH/MM3 (4.0-11.0)
[2016-11-11 04:25] VITALS: BP 125/64; PULSE 61; RESP 20; TEMP 98.2; O2SAT 95
[2016-11-11 04:45] LABS: POTASSIUM 4.7 MEQ/L (3.5-5.1)
[2016-11-11] MEDS: SODIUM CHLOR 0.9% 1000 ML INJ 1,000 ML IV SCH (04:50)
[2016-11-11 08:00] VITALS: PULSE 55
[2016-11-11] MEDS: ASPIRIN EC 81 MG TABEC PO SCH (08:05)
[2016-11-11] MEDS: PANTOPRAZOLE SOD 40 MG DELAYED RELEASE TAB PO SCH (08:05)
[2016-11-11] MEDS: FINASTERIDE 5 MG TAB PO SCH (08:05)
[2016-11-11 08:17] VITALS: BP_SYST 118; BP_SYST 120; BP_SYST 130; BP_DIAS 62; BP_DIAS 64; BP_DIAS 69; PULSE 60; RESP 18; O2SAT 95
[2016-11-11] MEDS ORDERED: MAGNESIUM SULFATE 1 GM PREMIX 100 ML IV ONE (08:45)
--- NOTE | 2016-11-11 08:47 | HHI.PR ---
Subjective History of Present Illness FEELS GOOD no fever or chills No N/v good appetite No CP or SOB No cough or sputum offers no opther c/o Vitals/Results Intake & Output 11/10/16 11/10/16 11/11/16 15:00 23:00 07:00 Intake Total 600 ml Output Total 800 ml 1100 ml Balance 600 ml -800 ml -1100 ml Intake Oral 300 ml IV Total 300 ml Output Urine Total 800 ml 1100 ml # Voids 1 Vital Signs Vital Signs Date Time Temp Pulse Resp B/P Pulse Ox O2 Delivery O2 Flow Rate FiO2 11/11/16 08:17 60 18 130/69 95 120/64 118/62 11/11/16 04:25 98.2 61 20 125/64 95 11/11/16 00:06 97.6 55 20 107/58 95 11/10/16 19:36 97.8 72 20 119/89 95 11/10/16 19:30 59 11/10/16 15:37 98.2 62 18 112/64 95 11/10/16 12:03 97.8 64 18 107/57 95 11/10/16 09:28 120/62 94 121/66 100/56 CBC/BMP: 11/11/16 0356 11/11/16 0356 Lab Results Laboratory Tests Test 11/10/16 11/11/16 10:51 03:56 Urine Color LIGHT-YELLOW Urine Turbidity CLEAR Urine pH 5.0 Urine Specific [place] 1.005 Urine Protein NEG mg/dL Urine Glucose (UA) NEG mg/dL Urine Ketones NEG mg/dL Urine Occult Blood NEG Urine Nitrite NEG Urine Bilirubin NEG Urine Urobilinogen LESS THAN 2.0 MG/DL Urine Leukocyte Esterase NEG Urine RBC LESS THAN 1 /hpf Urine WBC LESS THAN 1 /hpf Urine Mucus FEW /lpf Microscopic Urinalysis Comment CATH-CULT NOT IND White Blood Count 4.9 TH/MM3 Red Blood Count 4.07 MIL/MM3 Hemoglobin 11.9 GM/DL Hematocrit 34.9 % Mean Corpuscular Volume 85.9 FL Mean Corpuscular Hemoglobin 29.3 PG Mean Corpuscular Hemoglobin 34.1 % Concent Red Cell Distribution Width 14.1 % Platelet Count 117 TH/MM3 Mean Platelet Volume 8.4 FL Sodium Level 144 MEQ/L Potassium Level 4.7 MEQ/L Chloride Level 107 MEQ/L Carbon Dioxide Level 28.0 MEQ/L Anion Gap 9 MEQ/L Blood Urea Nitrogen 11 MG/DL Creatinine 1.08 MG/DL Estimat Glomerular Filtration 67 ML/MIN Rate Random Glucose 99 MG/DL Calcium Level 9.1 MG/DL Physical Exam General General Appearance: No Acute Distress, Comfortable Eyes Eye Exam: Pupils Equal, Sclera White, Extraocular Movement Intact Ears & Nose Ears & Nose Exam: Nasal Mucosa [place] Throat Throat Exam: Oral Mucosa [place] & Moist Neck Neck Exam: Neck Supple, Trachea Midline Pulmonary Resp Exam: Clear Bilaterally, Breath Sounds Equal Cardiology CV Exam: Regular, Normal Sinus Rhythm Gastrointestinal/Abdomen GI Exam: Soft, Non-Tender, Bowel Sounds Present Integumentary Skin Exam: Warm, Dry Extremeties Extremities Exam: No Edema, Pedal Pulses Palpable Neurologic Neuro Exam: Alert, Awake, Oriented, Speech Clear, Moving All Extremities Psychiatric Psych Exam: Appropriate Responses Assessment/Plan Assessment/Plan ASSESSMENT 1. s.p Syncope ,suspect dehydration/ orthostatism 2. acute febrile illness , Viral illness ?? etiology. 3. Generalized weakness with body aches. 4. Acute kidney injury with dehydration, mild. 5. Anemia. 6. History of dizziness. PLAN Blood c/s Neg afebrile , No sign of bacterial infection d/c IV Rocephin Echo Noted carotid US No sig stenosis , mild plaquing halie ASA/statin keep off Lisinopril at this time monitor BP closely as out pt basis & adjust BP meds medically stable for d/c d/c home today see Orders f/u pcp d/w PT Jewel Kaminski MD Nov 11, 2016 08:47
--- NOTE | 2017-01-06 18:51 | HHI.DS ---
Discharge Summary Admission Date Nov 08, 2016 at 23:57 Discharge Date: January 11, 2017 Admitting Diagnosis Syncope Brief History This was a pleasant 75-year-old white male who had been in his usual routine up until Thursday. He stated that he began feeling some generalized weakness with some body aches but continued to do his normal routine. He denied any chest pain, shortness of breath, headache. The patient did have nonbloody diarrhea the day of admission to [facility], but no complaints now of any further diarrhea. The next day on Thursday the patient was working round house and continued to have a body ache sensation the patient does note a history of dizziness but denied any syncopal episodes. The patient did start to note some dizziness with standing at his kitchen counter and does not remember anything after that. His was in the next room and stated that the patient was out for 5-10 seconds but then regained consciousness. He was nauseated at that point in time. The patient was brought to the [facility] facility and evaluated. He was transferred here to [place] for continued evaluation. According to the [facility] notes the patient was orthostatic. He was pale but not diaphoretic. Currently the patient's skin was pink, warm and dry. The patient did complain of some cough for a few days but none now. Imaging Last Impressions Carotid Artery Ultrasound 11/09/16 0000 Signed Impressions: Service Date/Time: Wednesday, November 09, 2016 09:33 - CONCLUSION: Minimal plaque at the right carotid bulb region. A significant stenosis is not seen. Austyn Art MD Head CT 11/08/162 Signed Impressions: Service Date/Time: Tuesday, November 08, 2016 21:44 - CONCLUSION: Negative noncontrast head CT. Austyn Piña MD Chest X-Ray 11/08/16 0000 Signed Impressions: Service Date/Time: Tuesday, November 08, 2016 23:58 - CONCLUSION: No infiltrate seen. Umer Rodriguez MD PE at Discharge General General Appearance: No Acute Distress, Comfortable Eyes Eye Exam: Pupils Equal, Sclera White, Extraocular Movement Intact Ears & Nose Ears & Nose Exam: Nasal Mucosa [place] Throat Throat Exam: Oral Mucosa [place] & Moist Neck Neck Exam: Neck Supple, Trachea Midline Pulmonary Resp Exam: Clear Bilaterally, Breath Sounds Equal Cardiology CV Exam: Regular, Normal Sinus Rhythm Gastrointestinal/Abdomen GI Exam: Soft, Non-Tender, Bowel Sounds Present Integumentary Skin Exam: Warm, Dry Extremeties Extremities Exam: No Edema, Pedal Pulses Palpable Neurologic Neuro Exam: Alert, Awake, Oriented, Speech Clear, Moving All Extremities Psychiatric Psych Exam: Appropriate Responses Hospital Course These are the diagnoses that were used to treat this patient during this brief hospital stay ASSESSMENT 1. s.p Syncope ,suspect dehydration/ orthostatism 2. acute febrile illness , Viral illness ?? etiology. 3. Generalized weakness with body aches. 4. Acute kidney injury with dehydration, mild. 5. Anemia. 6. History of dizziness. PLAN Blood blood cultures done and negative c/s Neg afebrile , No sign of bacterial infection. Rocephin IV was initiated but was DC 'd after no signs of infection d/c IV Rocephin Echo done to rule out any valvular disease or cardiac event carotid US done but showed No sig stenosis , mild plaquing Continue ASA/statin during his hospital stay, home meds keep off Lisinopril at this time monitor BP closely as out pt basis & adjust BP meds. Rule out a hypotensive event Agents vital signs were monitored every 4 and throughout stay Patient's heart rhythm was monitored without dysrhythmias Patient also had CT scan which was negative Patient was stable on day of discharge and had had no other further syncopal episodes. It was noted patient had been working out in the yard and had gotten overheated, possibly had a hypotensive event, or had some mild dehydration. Patient was rehydrated in the hospital, and was to follow-up with his PCP for any other test or issues an outpatient. Patient was stable on discharge Pt Condition on Discharge: Stable Discharge Disposition: Discharge Home Discharge Instructions DIET: Follow Instructions for: Heart Healthy Diet Fluid Restrictions: none Activities you can perform: Regular-No Restrictions Follow up Referrals: PCP Follow-up - 1 Week Continued Medications: Amlodipine (Amlodipine) 5 Mg Tab 5 MG PO DAILY Blood Pressure Management #[address] Ref [address] (Aspir-81) 81 Mg Tabdr 81 MG PO DAILY Atorvastatin (Atorvastatin) 40 Mg Tab 40 MG PO HS Cholesterol Management #30 Ref 0 TAB Cholecalciferol (Vitamin D) 2,000 Unit Tab 2000 MG PO DAILY Cyanocobalamin (Vitamin B-12) 1,000 Mcg Subl 1000 MCG SL DAILY Nutritional Supplement Ref 0 TAB.SL Finasteride (Proscar) 5 Mg Tab 5 MG PO DAILY Do not crush. Manage Prostate Problems #30 Ref 0 TAB [place]-3 Fatty Acids (Fish Oil) 1,000 Mg Cap 1000 MG PO DAILY Pantoprazole (Pantoprazole) 40 Mg Tab 40 MG PO DAILY Reflux #30 Ref 0 TAB Tamsulosin (Tamsulosin) 0.4 Mg Cap 0.4 MG PO HS Manage Prostate Problems #30 Ref 0 CAP Discontinued Medications: Lisinopril (Lisinopril) 40 Mg Tab 40 MG PO DAILY Blood Pressure Management #30 Ref 0 TAB Christine De La Cruz [facility] January 06, 2017 18:51
== END 2016-11-11 11:21 | disposition home or self-care (01) ==
LOC: PHED 21:20 → INTOOBSV 23:57 → PHEDA 23:57 → PHEDH 11-09 03:56 → NEPFCDU 11-09 16:55
PROVIDERS: ADMIT Specialist; ATTEND Specialist
DX: R55 Syncope and collapse (principal); R19.7 Diarrhea, unspecified; E78.00 Pure hypercholesterolemia, unspecified; R07.9 Chest pain, unspecified; K21.9 Gastro-esophageal reflux disease without esophagitis; I10 Essential (primary) hypertension; Z79.899 Other long term (current) drug therapy; D69.6 Thrombocytopenia, unspecified; R05 Cough; E78.5 Hyperlipidemia, unspecified; N40.0 Benign prostatic hyperplasia without lower urinary tract symptoms; I95.1 Orthostatic hypotension; N17.9 Acute kidney failure, unspecified; E86.0 Dehydration; D64.9 Anemia, unspecified; K27.9 Peptic ulcer, site unspecified, unspecified as acute or chronic, without hemorrhage or perforation
CPT/HCPCS: 70450; 71010; 80048; 81001; 82550; 83605; 83735; 84484; 85025; 85027; 85610; 85730; 87040; 87804; 93005; 93306; 93880; 96361; 96365; 96375; 99285; G0378; J0696; J2405; J2543; J2765; J3370; J3475; J7030; J7050